=== PATIENT | female | born 1970 | race Caucasian/White ===

== ENCOUNTER → 2017-01-24 | Outpatient (CLI) | payer BC ==
--- NOTE | 2017-01-24 08:52 | US ---
EXAMINATION TYPE: US kidneys/renal and bladder DATE OF EXAM: 01/24/2017 COMPARISON: NONE CLINICAL HISTORY: 46-year-old female with RLQ Pain R10.31. Pt states lower ABD pain. TECHNIQUE: Multiple sonographic images of the kidneys and bladder were obtained. FINDINGS: Right Kidney: 10.4 x 4.5 x 4.7 cm Left Kidney: 10.9 x 5.5 x 5.1 cm No hydronephrosis on either side. Incidentally, there is somewhat echogenic appearance to the liver. Mild circumferential bladder wall thickening could relate to under distention or cystitis. Neither ur eteral jet is seen during the course of the exam. IMPRESSION: 1. No hydronephrosis. 2. Mild circumferential bladder wall thickening could relate to under distention or cystitis. Clinica lly correlate. 3. The liver appears echogenic. Findings suggest fatty infiltration. Correlate with LFTs, lipid profi le, and patient risk factors.
--- NOTE | 2017-01-24 08:58 | US ---
EXAMINATION TYPE: US pelvic complete DATE OF EXAM: 01/24/2017 COMPARISON: NONE CLINICAL HISTORY: 46-year-old female with RLQ Pain R10.31. Pt states lower ABD pain TECHNIQUE: Transvaginal (TV) and Transabdominal (TA). TV supplemented to better evaluate the uteru s Date of LMP: 01/08/2017 FINDINGS: Uterus: Anteverted measuring 9.3 x 4.7 x 6.0 cm. The uterus is heterogeneous and bulky in appearance. There is a large 1.1 cm cervical nabothian cyst. A section scar is also present along the anterior lower uterine segment with suggestion of s ome fluid. There is bulky rounded appearance to the anterior uterine fundus measures 2.2 x 1.9 cm and could repr esent a focal intramural fibroid with submucosal component. Endometrial Stripe: 1.8 cm, thickened. Right Ovary: 2.7 x 1.8 x 2.2 cm. Left Ovary: 3.6 x 1.9 x 2.8 cm with a 2.0 cm dominant follicle or functional cyst. No evident adnexal abnormality or cul-de-sac free fluid. IMPRESSION: 1. scar containing small amount of fluid. The possibility of a scar niche can be c onsidered. 2. Bulky rounded appearance to the anterior uterine fundus measuring 2.2 cm. Findings suggest a focal intramural fibroid with submucosal component. Consider female pelvic MRI if further evaluation is de sired. 3. The endometrium shows mild excessive thickening at 1.8 cm.
== END | disposition home or self-care (01) ==
LOC: RADUSWWP 07:19
PROVIDERS: ATTEND Internal Medicine
DX: R93.8 Abnormal findings on diagnostic imaging of other specified body structures (principal); N32.89 Other specified disorders of bladder; Z98.890 Other specified postprocedural states
CPT/HCPCS: 76770; 76830; 76856

== ENCOUNTER → 2017-10-08 | Outpatient (CLI) | payer BC ==
--- NOTE | 2017-10-10 11:31 | MM ---
Reason for exam: screening (asymptomatic). Last mammogram was performed 1 year and 10 months ago. History: Patient had first child at age 34. Physical Findings: A clinical breast exam by your physician is recommended on an annual basis and results should be correlated with mammographic findings. MG Screening Mammo w CAD Bilateral CC and MLO view(s) were taken. Prior study comparison: December 19, 2015, bilateral MG diagnostic mammo w CAD CARLY. May 12, 2014, left breast MG work up mamm w CAD LT. There are scattered fibroglandular densities. No significant changes when compared with prior studies. ASSESSMENT: Negative, BI-RAD 1 RECOMMENDATION: Routine screening mammogram of both breasts in 1 year.
== END | disposition home or self-care (01) ==
LOC: RADMAMWWP 09:33
PROVIDERS: ATTEND Internal Medicine
DX: Z12.31 Encounter for screening mammogram for malignant neoplasm of breast (principal)
CPT/HCPCS: 77067

== ENCOUNTER → 2018-08-07 | Outpatient (CLI) | payer BC ==
--- NOTE | 2018-08-07 10:14 | MR ---
EXAMINATION TYPE: MR knee RT wo con DATE OF EXAM: 08/07/2018 COMPARISON: Outside x-ray dated 07/31/2018 HISTORY: Right knee pain TECHNIQUE: Multiplanar, multisequence imaging of the pain knee is performed without IV contrast. FINDINGS: MEDIAL MENISCUS: There is globular intrasubstance signal the posterior horn the medial meniscus. Muco id degeneration favored over meniscal tear. LATERAL MENISCUS: Anterior and posterior horns are intact without tear. CRUCIATE LIGAMENTS: The anterior and posterior cruciate ligaments are intact and unremarkable. COLLATERAL LIGAMENTS: The medial collateral ligament and lateral collateral ligament complex are inta ct and unremarkable. EXTENSOR MECHANISM: Visualized quadriceps and patellar tendons are intact. EFFUSION: No significant suprapatellar joint effusion. POPLITEAL CYST: No popliteal/la cyst. TRICOMPARTMENT SPACES: There is a spur along the upper margin of the patella. Multifocal grade III ch ondromalacia involving the patellar cartilage. Femoral and tibial cartilage is intact. No free fragme nts. No erosive changes. Mild narrowing of the medial compartment of the knee. BONE MARROW SIGNAL: Heterogeneous marrow likely in the basis of reconversion. IMPRESSION: 1. Globular intrasubstance signal posterior horn medial meniscus. Mucoid degeneration favored over me niscal tear. 2. Multifocal grade III chondromalacia patellar cartilage. No free fragment or osteochondral defect.
== END | disposition home or self-care (01) ==
LOC: RADMRIMAIN 08:47
PROVIDERS: ATTEND Orthopaedic Surgery
DX: M22.41 Chondromalacia patellae, right knee (principal); M23.8X1 Other internal derangements of right knee; R93.7 Abnormal findings on diagnostic imaging of other parts of musculoskeletal system

== ENCOUNTER 2018-10-19 08:40 | Observation (INO) | payer BC ==
[2018-10-19] MEDS ORDERED: ASPIRIN 81 MG PO STA (08:47)
[2018-10-19] MEDS ORDERED: MORPHINE SULFATE 2 MG/ML SYRINGE IVP STA (08:47)
[2018-10-19] MEDS ORDERED: NITROGLYCERIN OINT 1 INCH/GM PACKET TOPICAL STA (08:47)
--- NOTE | 2018-10-19 09:02 | ED ---
General Adult HPI - General Chief complaint: Chest Pain Stated complaint: chest pain Time Seen by Provider: 10/19/18 08:48 Source: patient, RN notes reviewed, old records reviewed Mode of arrival: ambulatory Limitations: no limitations - History of Present Illness Initial comments: 48-year-old female presenting for evaluation of chest pain. Patient describes one hour history of heartburn and nausea. She developed some pain in the left side of her neck. As well as radiating pain to both arms. She has no known history of coronary artery disease. She did report some pain in her upper neck and back. Pain began abruptly 1 hour prior to arrival. She has history of gastric reflux, states this is different from her normal reflux. She has previous surgical history of cholecystectomy. She has hypercholesterolemia, she is a nondiabetic. No family history of premature coronary artery disease. - Related Data Home Medications Medication Instructions Recorded Confirmed ALPRAZolam [Xanax] 0.25 mg PO DAILY PRN 10/19/18 10/19/18 Aspirin EC [Ecotrin Low Dose] 81 mg PO DAILY PRN 10/19/18 10/19/18 Ergocalciferol (Vitamin D2) 50,000 unit PO WE 10/19/18 10/19/18 [Drisdol] Fluticasone Nasal [place] [Flonase 1 spray EA NOSTRIL DAILY PRN 10/19/18 10/19/18 Nasal [place]] Levothyroxine Sodium [Synthroid] 100 mcg PO DAILY 10/19/18 10/19/18 Omeprazole [PriLOSEC] 20 mg PO DAILY PRN 10/19/18 10/19/18 Sertraline [Zoloft] 50 mg PO DAILY 10/19/18 10/19/18 Allergies Allergy/AdvReac Type Severity Reaction Status Date / Time egg Allergy Nausea & Verified 10/19/18 09:26 Vomiting Milk Containing Products Allergy Nausea & Verified 10/19/18 09:26 [Dairy] Vomiting Review of Systems ROS Statement: Those systems with pertinent positive or pertinent negative responses have been documented in the HPI. ROS Other: All systems not noted in ROS Statement are negative. Past Medical History Past Medical History: Thyroid Disorder History of Any Multi-Drug Resistant Organisms: None Reported Past Surgical History: Unable to Obtain Past Psychological History: No Psychological Hx Reported, Anxiety, Depression Smoking Status: Former smoker Past Alcohol Use History: None Reported Past Drug Use History: None Reported General Exam Limitations: no limitations General appearance: alert, in no apparent distress Head exam: Present: atraumatic, normocephalic Eye exam: Present: normal appearance, PERRL ENT exam: Present: normal exam Neck exam: Present: normal inspection. Absent: tenderness, meningismus Respiratory exam: Present: normal lung sounds bilaterally. Absent: respiratory distress, wheezes Cardiovascular Exam: Present: regular rate, normal rhythm GI/Abdominal exam: Present: soft. Absent: distended, tenderness, guarding Extremities exam: Present: normal inspection, normal capillary refill. Absent: pedal edema, calf tenderness Back exam: Present: normal inspection, full ROM Neurological exam: Present: alert, oriented X3 Psychiatric exam: Present: normal affect, normal mood Skin exam: Present: warm, dry, intact. Absent: cyanosis, diaphoretic Course Vital Signs 10/19/18 10/19/18 10/19/18 08:42 09:30 10:00 Temperature 98.3 F Pulse Rate 67 62 58 L Respiratory 16 18 16 Rate Blood Pressure 160/97 147/94 134/91 O2 Sat by Pulse 99 95 96 Oximetry EKG Findings - EKG Comments: EKG Findings:: Sinus bradycardia no ST segment elevation rate of 56, [place] interval 140 QRS duration 92, QTC 422 Medical Decision Making - Medical Decision Making 48-year-old female presenting for evaluation of indigestion, nausea, chest pain. Patient's symptoms didn't begin abruptly 1 hour prior to arrival. EKG is sinus rhythm with no ST segment elevation. Chest x-ray shows cardiomegaly no other acute findings. She has normal CBC, normal CMP. She d-dimer is negative. Initial troponin negative. Patient's will be kept in observation for serial cardiac enzymes, telemetry, cardiology consultation. Case is discussed with Dr. Hall, will admit patient. - Lab Data Result diagrams: 10/19/18 08:56 10/19/18 08:56 Lab Results 10/19/18 10/19/18 10/19/18 Range/Units 08:56 08:56 08:56 WBC 6.6 (3.8-10.6) k/uL RBC 4.27 (3.80-5.40) m/uL Hgb 13.1 (11.4-16.0) gm/dL Hct 39.5 (34.0-46.0) % MCV 92.6 (80.0-100.0) fL MCH 30.6 (25.0-35.0) pg MCHC 33.1 (31.0-37.0) g/dL RDW 13.6 (11.5-15.5) % Plt Count 257 (150-450) k/uL Neutrophils % 58 % Lymphocytes % 29 % Monocytes % 6 % Eosinophils % 3 % Basophils % 1 % Neutrophils # 3.9 (1.3-7.7) k/uL Lymphocytes # 1.9 (1.0-4.8) k/uL Monocytes # 0.4 (0-1.0) k/uL Eosinophils # 0.2 (0-0.7) k/uL Basophils # 0.1 (0-0.2) k/uL PT (9.0-12.0) sec INR (<1.2) APTT (22.0-30.0) sec D-Dimer (<0.60) mg/L FEU Sodium 138 (137-145) mmol/L Potassium 4.3 (3.5-5.1) mmol/L Chloride 106 (98-107) mmol/L Carbon Dioxide 24 (22-30) mmol/L Anion Gap 8 mmol/L BUN 12 (7-17) mg/dL Creatinine 0.76 (0.52-1.04) mg/dL Est GFR (CKD-EPI)AfAm >90 (>60 ml/min/1.73 sqM) Est GFR (CKD-EPI)NonAf >90 (>60 ml/min/1.73 sqM) Glucose 106 H (74-99) mg/dL Calcium 9.4 (8.4-10.2) mg/dL Magnesium 2.0 (1.6-2.3) mg/dL Total Bilirubin 0.4 (0.2-1.3) mg/dL AST 21 (14-36) U/L ALT 19 (9-52) U/L Alkaline Phosphatase 71 (38-126) U/L Troponin I (0.000-0.034) ng/mL NT-Pro-B Natriuret Pep 28 pg/mL Total Protein 7.3 (6.3-8.2) g/dL Albumin 4.1 (3.5-5.0) g/dL 10/19/18 10/19/18 Range/Units 08:56 08:56 WBC (3.8-10.6) k/uL RBC (3.80-5.40) m/uL Hgb (11.4-16.0) gm/dL Hct (34.0-46.0) % MCV (80.0-100.0) fL MCH (25.0-35.0) pg MCHC (31.0-37.0) g/dL RDW (11.5-15.5) % Plt Count (150-450) k/uL Neutrophils % % Lymphocytes % % Monocytes % % Eosinophils % % Basophils % % Neutrophils # (1.3-7.7) k/uL Lymphocytes # (1.0-4.8) k/uL Monocytes # (0-1.0) k/uL Eosinophils # (0-0.7) k/uL Basophils # (0-0.2) k/uL PT 10.3 (9.0-12.0) sec INR 1.0 (<1.2) APTT 27.4 (22.0-30.0) sec D-Dimer 0.26 (<0.60) mg/L FEU Sodium (137-145) mmol/L Potassium (3.5-5.1) mmol/L Chloride (98-107) mmol/L Carbon Dioxide (22-30) mmol/L Anion Gap mmol/L BUN (7-17) mg/dL Creatinine (0.52-1.04) mg/dL Est GFR (CKD-EPI)AfAm (>60 ml/min/1.73 sqM) Est GFR (CKD-EPI)NonAf (>60 ml/min/1.73 sqM) Glucose (74-99) mg/dL Calcium (8.4-10.2) mg/dL Magnesium (1.6-2.3) mg/dL Total Bilirubin (0.2-1.3) mg/dL AST (14-36) U/L ALT (9-52) U/L Alkaline Phosphatase (38-126) U/L Troponin I <0.012 (0.000-0.034) ng/mL NT-Pro-B Natriuret Pep pg/mL Total Protein (6.3-8.2) g/dL Albumin (3.5-5.0) g/dL Disposition Clinical Impression: Chest pain Disposition: ADMITTED IP TO THIS [facility] Condition: Stable Is patient prescribed a controlled substance at d/c from ED?: No Referrals: Angi Hall MD [Primary Care Provider] - 1-2 days Decision to Admit Reason: Admit from EC Decision Date: 10/19/18 Decision Time: 10:26
[2018-10-19] MEDS ORDERED: MAG HYDROX/AL HYDROX/SIMETH 30 ML, HYOSCYAMINE ELIXIR 10 ML, CIMETIDINE HCL 300 MG, LID... PO STA ×4 (09:05)
[2018-10-19] MEDS ORDERED: MORPHINE SULFATE 4 MG/ML SYRINGE IVP STA (09:05)
[2018-10-19 09:11] LABS: Basophils # (A) 0.1 k/uL (0-0.2); Basophils % (A) 1 %; Eosinophils # (A) 0.2 k/uL (0-0.7); Eosinophils % (A) 3 %; HCT 39.5 % (34.0-46.0); HGB 13.1 gm/dL (11.4-16.0); Lymphocytes # (A) 1.9 k/uL (1.0-4.8); Lymphocytes % (A) 29 %; MCH 30.6 pg (25.0-35.0); MCHC 33.1 g/dL (31.0-37.0); MCV 92.6 fL (80.0-100.0); Mean Platelet Volume 7.6; Monocytes # (A) 0.4 k/uL (0-1.0); Monocytes % (A) 6 %; Neutrophils # (A) 3.9 k/uL (1.3-7.7); Neutrophils % (A) 58 %; Platelet Count 257 k/uL (150-450); RBC 4.27 m/uL (3.80-5.40); RDW 13.6 % (11.5-15.5); WBC 6.6 k/uL (3.8-10.6)
--- NOTE | 2018-10-19 09:13 | XR ---
EXAMINATION TYPE: XR chest 2V DATE OF EXAM: 10/19/2018 HISTORY: Chest Pain. REFERENCE: Previous study dated 11/30/2015. FINDINGS: The heart is mildly prominent. The lungs are clear. Pleural spaces are clear. IMPRESSION: MILD CARDIOMEGALY.
[2018-10-19 09:25] LABS: ALT 19 U/L (9-52); AST 21 U/L (14-36); Albumin 4.1 g/dL (3.5-5.0); Alkaline Phosphatase 71 U/L (38-126); Anion Gap 8 mmol/L; Blood Urea Nitrogen 12 mg/dL (7-17); Calcium 9.4 mg/dL (8.4-10.2); Carbon Dioxide 24 mmol/L (22-30); Chloride 106 mmol/L (98-107); Glucose 106 mg/dL (74-99); Potassium 4.3 mmol/L (3.5-5.1); Sodium 138 mmol/L (137-145); Total Bilirubin 0.4 mg/dL (0.2-1.3); Total Protein 7.3 g/dL (6.3-8.2)
[2018-10-19 09:27] LABS: D-Dimer 0.26 mg/L FEU (<0.60); Partial Thromboplastin Time 27.4 sec (22.0-30.0); Prothrombin Time 10.3 sec (9.0-12.0)
[2018-10-19] MEDS ORDERED: ASPIRIN 325 MG TAB PO STA (10:11)
[2018-10-19] MEDS ORDERED: MORPHINE SULFATE 4 MG/ML SYRINGE IV PRN (10:21)
[2018-10-19] MEDS ORDERED: ONDANSETRON 4 MG/2 ML VIAL IVP PRN (10:21)
[2018-10-19] MEDS ORDERED: ACETAMINOPHEN TAB 325 MG TAB PO PRN (10:21)
[2018-10-19] MEDS ORDERED: NALOXONE 0.4 MG/ML 1 ML VIAL IV PRN ×2 (10:21→15:57)
[2018-10-19 15:54] VITALS: BMI 38.6
[2018-10-19] MEDS ORDERED: CALCIUM CARBONATE 500 MG CHEWABLE PO PRN (15:57)
[2018-10-19] MEDS ORDERED: HYDROcodone/APAP 5-325MG 1 EACH TAB PO PRN (15:57)
[2018-10-19] MEDS ORDERED: CYCLOBENZAPRINE 5 MG TAB PO PRN (15:59)
[2018-10-19] MEDS ORDERED: ASPIRIN 81 MG PO PRN (16:05)
[2018-10-19] MEDS ORDERED: ALPRAZolam 0.25 MG TAB PO PRN (16:05)
[2018-10-19] MEDS ORDERED: FLUTICASONE 50MCG/SPRAY NASAL 16GM EA NOSTRIL PRN (16:05)
[2018-10-19] MEDS ORDERED: PANTOPRAZOLE 40 MG/10 ML VIAL IVP ONE (16:07)
--- NOTE | 2018-10-19 16:10 | P.HPIM ---
History of Present Illness H&P Date: 10/19/18 Chief Complaint: GERD and neck pain Patient is a 48-year-old female who is a patient of Dr. Hall with past medical history of diet-controlled dyslipidemia diagnosed earlier this month, hypothyroidism, GERD, anxiety/depression, and prior cerebral AVM bleed who presented to the emergency department with complaints of neck pain and severe acid reflux. In the ER she underwent an extensive evaluation. On arrival she was slightly hypertensive with a blood pressure 160/97. Initial laboratory analysis was unremarkable. Initial troponin was negative. EKG appeared nonischemic. She was given a GI cocktail which relieved her dyspepsia but did not improve her neck pain. patient seen and examined by. She reports today she was in her bathroom getting ready after a shower and had sudden onset severe acid reflux. It felt like a burning that was retrosternal and through to her back. It was associated with some left sided neck pain. She also felt short of breath. She was having some tingling in bilateral fingers. She reports feeling lightheaded. She also felt nauseous. She did have a slight headache and felt weak. She did not feels that she was given a pass out. She reports she took Prilosec but that didn't help. She has been suffering from increased acid reflux recently and has been on as needed Prilosec. She reports that over the last 2 weeks she has felt some palpitations or irregular heartbeat but she has not yet sought medical attention for this. She does report some increased stress at home but doesn't feel like this episode is related to anxiety. She denies any recent cough, cold, fever, flu, diarrhea, constipation, or dysuria. 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 She reports that her only recent change in medication with the addition of Prilosec earlier this month by Dr. Hall Review of Systems Pertinent positives and negatives as discussed in HPI, a complete review of systems was performed and all other systems are negative. Past Medical History Past Medical History: GERD/Reflux, Thyroid Disorder Additional Past Medical History / Comment(s): hypothyroid. Right temporal AVM with bleed. Dyslipidemia currently on diet modification. 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 [employer] - Past Family History Mother Family Medical History: Hyperlipidemia, Hypertension Grandfather Family Medical History: Myocardial Infarction ([place]) Medications and Allergies Home Medications Medication Instructions Recorded Confirmed Type ALPRAZolam [Xanax] 0.25 mg PO DAILY PRN 10/19/18 10/19/18 History Aspirin EC [Ecotrin Low Dose] 81 mg PO DAILY PRN 10/19/18 10/19/18 History Ergocalciferol (Vitamin D2) 50,000 unit PO WE 10/19/18 10/19/18 History [Drisdol] Fluticasone Nasal [place] [Flonase 1 spray EA NOSTRIL DAILY PRN 10/19/18 10/19/18 History Nasal [place]] Levothyroxine Sodium [Synthroid] 100 mcg PO DAILY 10/19/18 10/19/18 History Omeprazole [PriLOSEC] 20 mg PO DAILY PRN 10/19/18 10/19/18 History Sertraline [Zoloft] 50 mg PO DAILY 10/19/18 10/19/18 History Allergies Allergy/AdvReac Type Severity Reaction Status Date / Time egg Allergy Nausea & Verified 10/19/18 09:26 Vomiting Milk Containing Products Allergy Nausea & Verified 10/19/18 09:26 [Dairy] Vomiting Physical Exam Osteopathic Statement: *. No significant issues noted on an osteopathic structural exam other than those noted in the History and Physical/Consult. Vitals: Vital Signs Temp Pulse Pulse Resp BP BP Pulse Ox 10/19/18 15:12 98.3 F 53 L 16 116/77 100 10/19/18 14:30 61 18 112/76 96 10/19/18 14:00 56 L 109/75 98 10/19/18 13:30 58 L 115/77 96 10/19/18 13:00 55 L 127/90 98 10/19/18 12:30 63 18 111/81 97 10/19/18 11:30 58 L 113/78 97 10/19/18 11:00 52 L 116/86 96 10/19/18 10:30 53 L 131/90 97 10/19/18 10:00 58 L 16 134/91 96 10/19/18 09:30 62 18 147/94 95 10/19/18 08:42 98.3 F 67 16 160/97 99 Intake and Output 10/19/18 10/19/18 10/19/18 06:59 14:59 22:59 Other: Weight 102.058 kg General: non toxic, no distress, appears at stated age, obese Derm: no unusual rashes/lesions no unusual ecchymoses, warm, dry Head: atraumatic, normocephalic, symmetric Eyes: EOMI, no lid lag, anicteric sclera, pupils equal round reactive to light ENT: Nose and ears atraumatic, no thrush, no pharyngeal erythema Neck: No thyromegaly, no cervical lymphadenopathy, trachea midline, supple Mouth: no lip lesion, mucus membranes moist Cardiovascular: S1S2 reg, no murmur, positive posterior tibial pulse bilateral, no edema, capillary refill less than 2 seconds Lungs: CTA bilateral, no rhonchi, no rales , no accessory muscle use Abdominal: soft, nontender to palpation, no guarding, no appreciable organomegaly, normal bowel sounds Ext: no gross muscle atrophy, muscle strength 5 out of 5 in all 4 extremities grossly, no contractures, Neuro: CN II-XI grossly intact, light touch intact all 4 extremities, finger to nose within normal limits, Psych: Alert, oriented, appropriate affect Results CBC & Chem 7: 10/19/18 08:56 10/19/18 08:56 Labs: Abnormal Lab Results - Last 24 Hours (Table) 10/19/18 Range/Units 08:56 Glucose 106 H (74-99) mg/dL Comments: EKG is reviewed by myself revealed sinus bradycardia at a rate of 56 with flattening of T waves, normal axis, normal intervals Chest x-ray: report reviewed Thrombosis Risk Factor Assmnt - DVT/VTE Prophylaxis DVT/VTE Prophylaxis: Low risk, early ambulation encouraged - Choose All That Apply Any of the Below Risk Factors Present?: Yes Each Factor Represents 1 point: Age 41-60 years, Obesity (BMI >25) Other Risk Factors: No Thrombosis Risk Factor Assessment Total Risk Factor Score: 2 Thrombosis Risk Factor Assessment Level: Low Risk Assessment and Plan Assessment: Severe dyspepsia associated with left-sided neck pain -Concern is her possible anginal equivalent -Telemetry, serial cardiac enzymes, nothing by mouth after midnight, cardiology consult -Aspirin daily -Check lipid profile -Trial of muscle relaxer and PPI Palpitations - tele - check TSH HLD - not on medications currently - check lipid profile Elevated BP without disgnosis of HTN - suspect will remain normal without intervention - follow BP Obesity, BMI 38.6 - outpatient structured weight loss. Anxiety - zoloft, xanax Hypothyroidism - TSH - levothyroxine The patient is placed in observation with an anticipated less than 2 per night stay for evaluation of acute coronary syndrome. Surrogate decision-maker: CODE STATUS:Full DVT prophylaxis: early ambulation Discussed with: Patient, nursing Anticipated discharge date: 24-[address]: home A total of 55 minutes was spent on the care of this complex patient more than 50% of the time was spent in counseling and care coordination.
[2018-10-20] MEDS ORDERED: LEVOTHYROXINE 100 MCG TAB PO SCH (06:30)
[2018-10-20] MEDS ORDERED: PANTOPRAZOLE 40 MG TABLET PO SCH (07:30)
[2018-10-20] MEDS ORDERED: PANTOPRAZOLE 40 MG/10 ML VIAL IV SCH (09:00)
[2018-10-20] MEDS ORDERED: SERTRALINE 50 MG TAB PO SCH (09:00)
--- NOTE | 2018-10-20 10:26 | P.CRDCN ---
History of Present Illness History of present illness: This is a pleasant 48-year-old female past medical history significant for gastroesophageal reflux disease, hypothyroidism, dyslipidemia and right temporal AV malformation status post bleed. She denies history of coronary artery disease, hypertension or diabetes mellitus. 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 We've been asked to see her in consultation for symptoms of chest discomfort. She states she woke up yesterday am with an achy neck at the base. This was described as an achy muscle. Then about 30 minutes after waking up she started having a burning sensation in the mid-sternal region that radiated through to the back and was associated with nausea. She has had reflux in the past and takes prilosec for that. She took a prilosec and achieved no relieve of the burning pain. After an hour or so of persistent pain she came to ED for evaluation. She was given a protonix which relieved her burning discomfort. She has had no further symptoms since that time. She is seen and examined resting comfortably in bed in no acute distress. She denies any associated shortness of breath, dizziness, vomiting or palpitations. EKG reveals sinus bradycardia heart rate of 56 with nonspecific flattened T waves in the precordial leads. Chest x-ray is negative for an acute cardiopulmonary process. Laboratory data reviewed, WBC 6.6, hemoglobin 13.1, platelets 257, d-dimer 0.26, sodium 138, potassium 4.3, creatinine 0.76, magnesium 2.0, cardiac enzymes negative 3, NT proBNP 28, LDL 122, HDL 38 and TSH 1.76. She currently takes no cardiac medications. At the time of my exam: CONSTITUTIONAL: Denies fever. Denies chills. EYES: Denies blurred vision. Denies vision changes. Denies eye pain. EARS, NOSE, MOUTH & THROAT: Denies headache. Denies sore throat. Denies ear pain. CARDIOVASCULAR: Denies chest pain. Denies shortness of breath. Denies orthopnea. Denies PND. Denies palpitations. RESPIRATORY: Denies cough. GASTROINTESTINAL: Denies abdominal pain. Denies diarrhea. Denies constipation. Denies nausea. Denies vomiting. MUSCULOSKELETAL: Denies myalgias. INTEGUMENTARY: Denies pruitis. Denies rash. NEUROLOGIC: Denies numbness. Denies tingling. Denies weakness. PSYCHIATRIC: Denies anxiety. Denies depression. ENDOCRINE: Denies fatigue. Denies weight change. Denies polydipsia. Denies polyurina. GENITOURINARY: Denies burning, hematuria or urgency with micturation. HEMATOLOGIC: Denies history of anemia. Denies bleeding. Blood pressure 110/73 heart rate 72 afebrile maintaining oxygen saturation on room air GENERAL: This is a 48-year-old female in no apparent distress at the time of my examination. HEENT: Head is atraumatic, normocephalic. Pupils are equal, round. Sclerae anicteric. Conjunctivae are clear. Mucous membranes of the mouth are moist. Neck is supple. There is no jugular venous distention. No carotid bruit is heard. LUNGS: Clear to auscultation no wheezes, rales or rhonchi. No chest wall tenderness is noted on palpation or with deep breathing. HEART: Regular rate and rhythm without murmurs, rubs or gallops. S1 and S2 heard. ABDOMEN: Soft, nontender. Bowel sounds are heard. No organomegaly noted. EXTREMITIES: No evidence of peripheral edema and no calf tenderness noted. VASCULAR: Radial and dorsalis pedis pulses palpated, no evidence of clubbing. NEUROLOGIC: Patient is awake, alert and oriented x3. ASSESSMENT Chest discomfort, atypical for angina. An acute coronary event has been ruled out. Gastroesophageal reflux disease Dyslipidemia Hypothyroidism PLAN An acute coronary event has been ruled out. Symptoms resolved potonix and are more suggestive of gastroesophageal reflux disease however with baseline EKG abnormalities we will proceed with a stress test. Echocardiogram has been ordered per the emergency department and will be reviewed. Lifestyle modifications in the form of diet and exercise recommended for lowering of LDL cholesterol. If stress test is normal she is stable from a cardiac perspective. Thank you kindly for this consultation. Nurse Practitioner note has been reviewed, I agree with a documented findings and plan of care. Patient was seen and examined. Past Medical History Past Medical History: GERD/Reflux, Thyroid Disorder Additional Past Medical History / Comment(s): hypothyroid. Right temporal AVM with bleed. Dyslipidemia currently on diet modification. History of Any Multi-Drug Resistant Organisms: None Reported Past Surgical History: Section, Cholecystectomy, Tubal Ligation Additional Past Surgical History / Comment(s): x2, brain bleed from AVM with surgery/craniotomy, Past Anesthesia/Blood Transfusion Reactions: Postoperative Nausea & Vomiting (PONV) Past Psychological History: Anxiety, Depression Smoking Status: Former smoker Past Alcohol Use History: None Reported Past Drug Use History: None Reported - Past Family History Mother Family Medical History: Hyperlipidemia, Hypertension Grandfather Family Medical History: Myocardial Infarction ([place]) Medications and Allergies Home Medications Medication Instructions Recorded Confirmed Type ALPRAZolam [Xanax] 0.25 mg PO DAILY PRN 10/19/18 10/19/18 History Aspirin EC [Ecotrin Low Dose] 81 mg PO DAILY PRN 10/19/18 10/19/18 History Ergocalciferol (Vitamin D2) 50,000 unit PO WE 10/19/18 10/19/18 History [Drisdol] Fluticasone Nasal [place] [Flonase 1 spray EA NOSTRIL DAILY PRN 10/19/18 10/19/18 History Nasal Stopover] Levothyroxine Sodium [Synthroid] 100 mcg PO DAILY 10/19/18 10/19/18 History Omeprazole [PriLOSEC] 20 mg PO DAILY PRN 10/19/18 10/19/18 History Sertraline [Zoloft] 50 mg PO DAILY 10/19/18 10/19/18 History Allergies Allergy/AdvReac Type Severity Reaction Status Date / Time egg Allergy Nausea & Verified 10/19/18 09:26 Vomiting Milk Containing Products Allergy Nausea & Verified 10/19/18 09:26 [Dairy] Vomiting Physical Exam Vitals: Vital Signs Temp Pulse Pulse Resp BP BP BP 10/20/18 06:51 97.7 F 72 17 110/73 10/20/18 04:00 98.0 F 63 14 103/69 10/20/18 03:48 15 10/20/18 00:00 15 10/19/18 23:00 98.6 F 66 15 94/62 10/19/18 20:00 76 15 10/19/18 19:04 98.4 F 76 15 119/67 10/19/18 15:58 53 L 16 10/19/18 15:12 98.3 F 53 L 16 116/77 10/19/18 14:30 61 18 112/76 10/19/18 14:00 56 L 109/75 10/19/18 13:30 58 L 115/77 10/19/18 13:00 55 L 127/90 10/19/18 12:30 63 18 111/81 10/19/18 11:30 58 L 113/78 10/19/18 11:00 52 L 116/86 10/19/18 10:30 53 L 131/90 10/19/18 10:00 58 L 16 134/91 10/19/18 09:30 62 18 147/94 10/19/18 08:42 98.3 F 67 16 160/97 Pulse Ox 10/20/18 06:51 96 10/20/18 04:00 98 10/20/18 03:48 10/20/18 00:00 10/19/18 23:00 97 10/19/18 20:00 10/19/18 19:04 98 10/19/18 15:58 10/19/18 15:12 100 10/19/18 14:30 96 10/19/18 14:00 98 10/19/18 13:30 96 10/19/18 13:00 98 10/19/18 12:30 97 10/19/18 11:30 97 10/19/18 11:00 96 10/19/18 10:30 97 10/19/18 10:00 96 10/19/18 09:30 95 10/19/18 08:42 99 Intake and Output 10/19/18 10/20/18 10/20/18 22:59 06:59 14:59 Intake Total 0 Balance 0 Intake: Oral 0 Other: Voiding Method Toilet Toilet # Voids 1 Results 10/19/18 08:56 10/19/18 08:56 Cardiac Enzymes 10/19/18 10/19/18 10/19/18 Range/Units 08:56 08:56 15:00 AST 21 (14-36) U/L Troponin I <0.012 <0.012 (0.000-0.034) ng/mL 10/19/18 Range/Units 21:07 AST (14-36) U/L Troponin I <0.012 (0.000-0.034) ng/mL Coagulation 10/19/18 Range/Units 08:56 PT 10.3 (9.0-12.0) sec APTT 27.4 (22.0-30.0) sec Lipids 10/19/18 Range/Units 08:56 Triglycerides 153 H (<150) mg/dL Cholesterol 191 (<200) mg/dL HDL Cholesterol 38 L (40-60) mg/dL CBC 10/19/18 Range/Units 08:56 WBC 6.6 (3.8-10.6) k/uL RBC 4.27 (3.80-5.40) m/uL Hgb 13.1 (11.4-16.0) gm/dL Hct 39.5 (34.0-46.0) % Plt Count 257 (150-450) k/uL Comprehensive Metabolic Panel 10/19/18 Range/Units 08:56 Sodium 138 (137-145) mmol/L Potassium 4.3 (3.5-5.1) mmol/L Chloride 106 (98-107) mmol/L Carbon Dioxide 24 (22-30) mmol/L BUN 12 (7-17) mg/dL Creatinine 0.76 (0.52-1.04) mg/dL Glucose 106 H (74-99) mg/dL Calcium 9.4 (8.4-10.2) mg/dL AST 21 (14-36) U/L ALT 19 (9-52) U/L Alkaline Phosphatase 71 (38-126) U/L Total Protein 7.3 (6.3-8.2) g/dL Albumin 4.1 (3.5-5.0) g/dL Current Medications Generic Name Dose Route Start Last Admin Trade Name Freq PRN Reason Stop Dose Admin Acetaminophen 650 mg 10/19/18 10:21 10/19/18 22:09 Tylenol Tab PO 650 mg Q6HR PRN Administration Mild Pain or Fever > 100.5 Hydrocodone Bitart/Acetaminophen 1 each 10/19/18 15:57 [place] 5-325 PO Q4HR PRN Moderate Pain Alprazolam 0.25 mg 10/19/18 16:05 Xanax PO DAILY PRN Anxiety Aspirin 81 mg 10/19/18 16:05 Aspirin PO DAILY PRN Pain Calcium Carbonate/Glycine 1,000 mg 10/19/18 15:57 Tums PO Q4HR PRN Dyspepsia Cyclobenzaprine HCl 5 mg 10/19/18 15:59 10/19/18 17:16 Flexeril PO 5 mg TID PRN Administration Muscle Spasm Ergocalciferol 50,000 unit 10/22/18 09:00 Vitamin D2 PO WE [place] Fluticasone Propionate 1 spray 10/19/18 16:05 Flonase Nasal [place] EA NOSTRIL DAILY PRN Allergy Symptoms Levothyroxine Sodium 100 mcg 10/20/18 06:30 10/20/18 06:04 Synthroid PO 100 mcg DAILY@0630 PEYMAN Administration Morphine Sulfate 4 mg 10/19/18 10:21 Morphine Sulfate (Inj) IV Q4HR PRN Severe Pain Naloxone HCl 0.2 mg 10/19/18 15:57 Narcan IV Q2M PRN Opioid Reversal Ondansetron HCl 4 mg 10/19/18 10:21 Zofran IVP Q8HR PRN Nausea And Vomiting Pantoprazole Sodium 40 mg 10/20/18 07:30 Protonix PO AC-BID PEYMAN Sertraline HCl 50 mg 10/20/18 09:00 Zoloft PO DAILY [place]MAN Intake and Output 10/19/18 10/20/18 10/20/18 22:59 06:59 14:59 Intake Total 0 Balance 0 Intake: Oral 0 Other: Voiding Method Toilet Toilet # Voids 1 10/19/18 08:56 10/19/18 08:56
[2018-10-20 12:26] VITALS: BP 109/76; PULSE 89; RESP 16; TEMP 98.6
--- NOTE | 2018-10-20 12:37 | ECHOF ---
Referral Reason: MEASUREMENTS -------- HEIGHT: 162.6 cm WEIGHT: 102.1 kg BP: 110/73 RVIDd: 2.7 cm (< 3.3) IVSd: 1.1 cm (0.6 - 1.1) LVIDd: 3.9 cm (3.9 - 5.3) LVPWd: 1.5 cm (0.6 - 1.1) IVSs: 1.5 cm LVIDs: 2.6 cm LVPWs: 1.9 cm Ao Diam: 2.8 cm (2.0 - 3.7) AV Cusp: 2.1 cm (1.5 - 2.6) LA Diam: 3.2 cm (2.7 - 3.8) MV EXCURSION: 21.171 mm (> 18.000) MV EF SLOPE: 96 mm/s (70 - 150) EPSS: 0.8 cm MV E Larry: 0.54 m/s MV DecT: 225 ms MV A Larry: 0.53 m/s MV E/A Ratio: 1.02 RAP: 5.00 mmHg RVSP: 11.68 mmHg FINDINGS -------- Sinus rhythm. This was a technically good study. The left ventricular size is normal. There is mild concentric left ventricular hypertrophy. Overa ll left ventricular systolic function is normal with, an EF between 55 - 60 %. The right ventricle is normal in size. The left atrial size is normal. The right atrial size is normal. Interatrial and interventricular septum intact. The aortic valve is trileaflet and appears structurally normal. The mitral valve leaflets are mildly thickened. There is trace mitral regurgitation. Trace tricuspid regurgitation present. The right ventricular systolic pressure, as measured by Dopp ler, is 11.68mmHg. Pulmonic valve appears structurally normal. The aortic root size is normal. Normal inferior vena cava with normal inspiratory collapse consistent with estimated right atrial pre ssure of 5 mmHg. There is no pericardial effusion. CONCLUSIONS -------- 1. Sinus rhythm. 2. This was a technically good study. 3. The left ventricular size is normal. 4. There is mild concentric left ventricular hypertrophy. 5. Overall left ventricular systolic function is normal with, an EF between 55 - 60 %. 6. The right ventricle is normal in size. 7. The left atrial size is normal. 8. The right atrial size is normal. 9. Interatrial and interventricular septum intact. 10. The aortic valve is trileaflet and appears structurally normal. 11. The mitral valve leaflets are mildly thickened. 12. There is trace mitral regurgitation. 13. Trace tricuspid regurgitation present. 14. The right ventricular systolic pressure, as measured by Doppler, is 11.68mmHg. 15. Pulmonic valve appears structurally normal. 16. The aortic root size is normal. 17. Normal inferior vena cava with normal inspiratory collapse consistent with estimated right atrial pressure of 5 mmHg. 18. There is no pericardial effusion. FIRE RANGE TECHNICIAN: Jaelyn Lindsey RDCS
--- NOTE | 2018-10-20 13:07 | ECHOS ---
STRESS ECHOCARDIOGRAM DATE OF SERVICE: 10/20/2018 INDICATIONS: Chest pain. MEDICATIONS: BASELINE HEART RATE: 76 BASELINE BLOOD PRESSURE: 123/74 MAXIMUM HEART RATE: 157 MAXIMUM BLOOD PRESSURE: 150/72 85% MPHR: 145 100% MPHR: 171 METS: 9.7 MAXIMUM STAGE REACHED: III TOTAL EXERCISE TIME: 8 minutes CLINICAL INFORMATION: Patient was exercised for a total period of 8 minutes. The peak heart rate of 157 was achieved. Maximum blood pressure 150/72 mmHg was noted. Resting EKG shows normal sinus rhythm with normal ND interval and QRS duration and normal ST-T waves. No ST-segment depression suggestive of ischemia is noted. The baseline echocardiographic images reveal normal left ventricular chamber size with normal left ventricular systolic function. In the immediate post exercise, normal increase in the wall thickness and contractility is noted. FINAL IMPRESSION: This stress echocardiographic study is negative for stress-induced ischemia. EKG portion of the stress is not suggestive of ischemia. Patient's exercise tolerance is normal. MMODL / IJN: [id number] /
--- NOTE | 2018-10-20 15:00 | P.DS ---
Providers Date of admission: 10/19/18 10:21 Expected date of discharge: 10/20/18 Attending physician: Angi Hall Consults: 10/19/18 10:22 Consult Physician Routine Consulting Provider: Davie Bowser Consult Reason/Comments: CP Do you want consulting provider notified?: Yes Primary care physician: Angi Hall [facility] Course: Discharge diagnosis 1. Chest pain: OK ruled out. No evidence of acute coronary syndrome. Symptoms likely related to patient's acid reflux. Patient was seen and evaluated by cardiology service and underwent stress echo which was negative. EKG sinus bradycardia with heart rate of 56 chest x-ray mild cardiomegaly troponins were negative 3 sets d-dimer normal at 0.26. Patient symptoms have improved she has been cleared by cardiology services 2. Severe dyspepsia with left-sided neck pain. OK ruled out. Patient's symptoms have improved with the Protonix. Likely patient has underlying GERD contributing to her chest pain like symptoms. It appears the patient takes the omeprazole as needed home. 3. Left-sided neck pain resolved. Patient was given 1 dose of muscle relaxer and has not required it since. 4. Palpitations resolved. No arrhythmias noted on telemetry. TSH normal. Patient cleared by cardiology 5. Hypertension on admission resolved 6. Obesity 7. Generalized anxiety disorder 8. Hypothyroidism Hospital course Patient is a 48-year-old female who is a patient of Dr. Hall with past medical history of diet-controlled dyslipidemia diagnosed earlier this month, hypothyroidism, GERD, anxiety/depression, and prior cerebral AVM bleed who presented to the emergency department with complaints of neck pain and severe acid reflux. In the ER she underwent an extensive evaluation. On arrival she was slightly hypertensive with a blood pressure 160/97. Initial laboratory analysis was unremarkable. Initial troponin was negative. EKG appeared nonischemic. She was given a GI cocktail which relieved her dyspepsia but did not improve her neck pain. patient seen and examined by. She reports today she was in her bathroom getting ready after a shower and had sudden onset severe acid reflux. It felt like a burning that was retrosternal and through to her back. It was associated with some left sided neck pain. She also felt short of breath. She was having some tingling in bilateral fingers. She reports feeling lightheaded. She also felt nauseous. She did have a slight headache and felt weak. She did not feels that she was given a pass out. She reports she took Prilosec but that didn't help. She has been suffering from increased acid reflux recently and has been on as needed Prilosec. She reports that over the last 2 weeks she has felt some palpitations or irregular heartbeat but she has not yet sought medical attention for this. She does report some increased stress at home but doesn't feel like this episode is related to anxiety. She denies any recent cough, cold, fever, flu, diarrhea, constipation, or dysuria. 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 She reports that her only recent change in medication with the addition of Prilosec earlier this month by Dr. Hall 10/20/2018 patient is medically stable for discharge. She has been cleared by cardiology service for discharge. Her stress echo was negative. As stated above acute coronary syndrome was ruled out. Symptoms are likely related to acid reflux. I did improve with her Protonix and Tums. At this time we'll discontinue omeprazole and discharge patient on Protonix 40 mg daily. We'll follow up with Dr. Hall in 3 days. Recommend acid reflux precautions. Recommend staying upright for at least 30 minutes after eating. I performed an examination of the patient and discussed their management with the physician Director Of Strategic Initiatives. I have reviewed the Physician Director Of Strategic Initiatives's notes and agree with the documented findings and plan of care Patient Condition at Discharge: Stable Plan - Discharge Summary New Discharge Prescriptions: New Pantoprazole [Protonix] 40 mg PO DAILY #30 tablet. Continue Fluticasone Nasal [place] [Flonase Nasal [place]] 1 spray EA NOSTRIL DAILY PRN PRN Reason: Allergy Symptoms ALPRAZolam [Xanax] 0.25 mg PO DAILY PRN PRN Reason: Anxiety Levothyroxine Sodium [Synthroid] 100 mcg PO DAILY Ergocalciferol (Vitamin D2) [Drisdol] 50,000 unit PO WE Aspirin EC [Ecotrin Low Dose] 81 mg PO DAILY PRN PRN Reason: Pain Sertraline [Zoloft] 50 mg PO DAILY Discontinued Omeprazole [PriLOSEC] 20 mg PO DAILY PRN PRN Reason: STOMACH Discharge Medication List ALPRAZolam [Xanax] 0.25 mg PO DAILY PRN 10/19/18 [History] Aspirin EC [Ecotrin Low Dose] 81 mg PO DAILY PRN 10/19/18 [History] Ergocalciferol (Vitamin D2) [Drisdol] 50,000 unit PO WE 10/19/18 [History] Fluticasone Nasal [place] [Flonase Nasal [place]] 1 spray EA NOSTRIL DAILY PRN 10/19/18 [History] Levothyroxine Sodium [Synthroid] 100 mcg PO DAILY 10/19/18 [History] Sertraline [Zoloft] 50 mg PO DAILY 10/19/18 [History] Pantoprazole [Protonix] 40 mg PO DAILY #30 tablet. 10/20/18 [Rx] Follow up Appointment(s)/Referral(s): Angi Hall MD [Primary Care Provider] - 3 Days Activity/Diet/Wound Care/Special Instructions: Diet: Heart healthy, avoid foods high in acid. Avoid caffeinated beverages. Keep head elevated 30 minutes after eating Activity as tolerated Discharge Disposition: HOME SELF-CARE
[2018-10-22] MEDS ORDERED: ERGOCALCIFEROL 50,000 UNIT CAP PO SCH (09:00)
== END 2018-10-20 16:02 | disposition home or self-care (01) ==
LOC: EC 08:40 → 1SOBS 10:21
PROVIDERS: ADMIT Internal Medicine; ATTEND Internal Medicine
DX: R07.89 Other chest pain (principal); K30 Functional dyspepsia; K21.9 Gastro-esophageal reflux disease without esophagitis; I51.7 Cardiomegaly; E78.00 Pure hypercholesterolemia, unspecified; E78.5 Hyperlipidemia, unspecified; E03.9 Hypothyroidism, unspecified; M54.2 Cervicalgia; Q28.2 Arteriovenous malformation of cerebral vessels; R42 Dizziness and giddiness; R20.2 Paresthesia of skin; R53.1 Weakness; R00.2 Palpitations; R00.1 Bradycardia, unspecified; R03.0 Elevated blood-pressure reading, without diagnosis of hypertension; F32.9 Major depressive disorder, single episode, unspecified; F41.1 Generalized anxiety disorder; E66.9 Obesity, unspecified; Z68.38 Body mass index [BMI] 38.0-38.9, adult; Z79.82 Long term (current) use of aspirin; Z79.890 Hormone replacement therapy; Z79.899 Other long term (current) drug therapy; Z91.012 Allergy to eggs; Z91.011 Allergy to milk products; Z87.19 Personal history of other diseases of the digestive system; Z87.891 Personal history of nicotine dependence; Z90.49 Acquired absence of other specified parts of digestive tract; Z98.51 Tubal ligation status; Z82.49 Family history of ischemic heart disease and other diseases of the circulatory system; Z83.49 Family history of other endocrine, nutritional and metabolic diseases
CPT/HCPCS: 96375; 96374; 99285; 36415; 93005; 93306; 93351; 85379; 83880; 80061; 80053; 84443; 83735; 84484; 85025; 85610; 85730; 71046; G0378 ×2; J2270; C9113

== ENCOUNTER → 2019-04-23 | Outpatient (CLI) | payer BC ==
--- NOTE | 2019-04-24 10:54 | MM ---
Reason for exam: screening (asymptomatic). Last mammogram was performed 1 year and 6 months ago. History: Patient had first child at age 34. Physical Findings: A clinical breast exam by your physician is recommended on an annual basis and results should be correlated with mammographic findings. MG Screening Mammo w CAD Bilateral CC and MLO view(s) were taken. Prior study comparison: October 08, 2017, bilateral MG screening mammo w CAD. December 19, 2015, bilateral MG diagnostic mammo w CAD CARLY. The breast tissue is heterogeneously dense. This may lower the sensitivity of mammography. There is no discrete abnormality. No significant changes when compared with prior studies. ASSESSMENT: Negative, BI-RAD 1 RECOMMENDATION: Routine screening mammogram of both breasts in 1 year.
== END | disposition home or self-care (01) ==
LOC: RADMAMWWP 08:27
PROVIDERS: ATTEND Internal Medicine
DX: Z12.31 Encounter for screening mammogram for malignant neoplasm of breast (principal)
CPT/HCPCS: 77067

== ENCOUNTER → 2020-04-28 | Outpatient (CLI) | payer BC | END | disposition home or self-care (01) | LOC: LABWHC1 10:27 | PROVIDERS: ATTEND Family Medicine | DX: Z20.828 Contact with and (suspected) exposure to other viral communicable diseases (principal) | CPT/HCPCS: U0003; C9803 ==

== ENCOUNTER → 2020-05-25 | Outpatient (CLI) | payer BC ==
--- NOTE | 2020-05-26 08:09 | MM ---
Reason for exam: screening (asymptomatic). Last mammogram was performed 1 year and 1 month ago. History: Patient had first child at age 34. Physical Findings: A clinical breast exam by your physician is recommended on an annual basis and results should be correlated with mammographic findings. MG Screening Mammo w CAD Bilateral CC and MLO view(s) were taken. Prior study comparison: April 23, 2019, bilateral MG screening mammo w CAD. October 08, 2017, bilateral MG screening mammo w CAD. The breast tissue is heterogeneously dense. This may lower the sensitivity of mammography. There are benign appearing round calcifications bilaterally. There is no discrete abnormality. ASSESSMENT: Benign, BI-RAD 2 RECOMMENDATION: Routine screening mammogram of both breasts in 1 year.
== END | disposition home or self-care (01) ==
LOC: RADMAMWWP 10:55
PROVIDERS: ATTEND Obstetrics & Gynecology
DX: Z12.31 Encounter for screening mammogram for malignant neoplasm of breast (principal)
CPT/HCPCS: 77067

== ENCOUNTER 2020-10-31 19:27 | Emergency (ER) | payer BC ==
[2020-10-31 19:40] VITALS: RESP 18; TEMP 97.6
[2020-10-31] MEDS ORDERED: ASPIRIN 81 MG PO STA (20:03)
--- NOTE | 2020-10-31 20:22 | ED ---
Chest Pain HPI - General Chief Complaint: Chest Pain Stated Complaint: chest Pain Time Seen by Provider: 10/31/20 19:43 Source: patient Mode of arrival: wheelchair Limitations: no limitations - History of Present Illness Initial Comments: Patient is a 50-year-old female with history of thyroid disorder, presenting to emergency Department with complaints of intermittent chest pains that started about 2 hours prior to arrival. Patient states she was driving home from work when she was getting intermittent sharp pains through her left chest. She stat es it did not last more than a few seconds. She states when she got home she took a couple baby aspirins, she also took a Gas-X and omeprazole to see if it would help over she's continued to have the sharp pain so she came into the ER for evaluation. She states currently she is pain-free, no shortness of breath. She denies any recent fevers or chills. She states before she was driving home from work she felt her normal self, is been eating and drinking as normal today. She denies any heart disease, she had a stress test and for workup 2 years ago, no acute findings. She denies any nausea or vomiting or diarrhea. She has no further complaints at this time. Upon arrival to the ER her vital signs are stable. - Related Data Home Medications Medication Instructions Recorded Confirmed ALPRAZolam [Xanax] 0.25 mg PO DAILY PRN 10/19/18 10/19/18 Aspirin EC [Ecotrin Low Dose] 81 mg PO DAILY PRN 10/19/18 10/19/18 Ergocalciferol (Vitamin D2) 50,000 unit PO WE 10/19/18 10/19/18 [Drisdol (50,000 Iu)] Fluticasone Nasal [place] [Flonase 1 spray EA NOSTRIL DAILY PRN 10/19/18 10/19/18 Nasal [place]] Levothyroxine Sodium [Synthroid] 100 mcg PO DAILY 10/19/18 10/19/18 Sertraline [Zoloft] 50 mg PO DAILY 10/19/18 10/19/18 Previous Rx's Medication Instructions Recorded Pantoprazole [Protonix] 40 mg PO DAILY #30 tablet. 10/20/18 Allergies Allergy/AdvReac Type Severity Reaction Status Date / Time egg Allergy Nausea & Verified 10/31/20 19:37 Vomiting Milk Containing Products Allergy Nausea & Verified 10/31/20 19:37 [Dairy] Vomiting Review of Systems ROS Statement: Those systems with pertinent positive or pertinent negative responses have been documented in the HPI. ROS Other: All systems not noted in ROS Statement are negative. EKG Findings - EKG Comments: EKG Findings:: Normal sinus rhythm, low voltage QRS, nonspecific T-wave abnormalities, prolonged QT, this is similar to previous EKG on 10/20/2018. Ventricular rate 70, KS interval 148, QTc 442. No signs of an acute ischemic process. Past Medical History Past Medical History: GERD/Reflux, Thyroid Disorder Additional Past Medical History / Comment(s): hypothyroid. Right temporal AVM with bleed. Dyslipidemia currently on diet modification. History of Any Multi-Drug Resistant Organisms: None Reported Past Surgical History: Section, Cholecystectomy, Tubal Ligation Additional Past Surgical History / Comment(s): x2, brain bleed from AVM with surgery/craniotomy, Past Anesthesia/Blood Transfusion Reactions: Postoperative Nausea & Vomiting (PONV) Past Psychological History: Anxiety, Depression Smoking Status: Never smoker Past Alcohol Use History: Rare Past Drug Use History: None Reported - Past Family History Mother Family Medical History: Hyperlipidemia, Hypertension Grandfather Family Medical History: Myocardial Infarction ([place]) General Exam - General Exam Comments Initial Comments: GENERAL: Patient is well-developed and well-nourished. Patient is nontoxic and in no acute distress. HEAD: Atraumatic, normocephalic. EYES: Pupils equal round and reactive to light, extraocular movements intact, sclera anicteric, conjunctiva are normal. Eyelids were unremarkable. ENT: TMs normal, nares patent, oropharynx clear without exudates. Moist mucous membranes. NECK: Normal range of motion, supple without lymphadenopathy or JVD. LUNGS: Unlabored respirations. Breath sounds clear to auscultation bilaterally and equal. No wheezes rales or rhonchi. HEART: Regular rate and rhythm without murmurs, rubs or gallops. ABDOMEN: Soft, nontender, normoactive bowel sounds. No guarding, no rebound. No masses appreciated. : Deferred MUSCULOSKELETAL: Normal extremities with adequate strength and normal range of motion, no pitting or edema. No clubbing or cyanosis. NEUROLOGICAL: Patient is alert and oriented x 3. Motor and sensory are also intact. Cranial nerves II through XII grossly intact. Symmetrical smile. Normal speech, normal gait. PSYCH: Normal mood, normal affect. SKIN: Warm, Dry, normal turgor, no rashes or lesions noted. Limitations: no limitations Course Vital Signs 10/31/20 10/31/20 19:37 20:21 Temperature 97.6 F Pulse Rate 62 73 Respiratory 18 18 Rate Blood Pressure 128/84 133/86 O2 Sat by Pulse 98 98 Oximetry Chest Pain MDM - [facility] Patient is a 50-year-old female history of thyroid disease, presenting for intermittent chest pain that started about 2 hours prior to arrival. Her vital signs are stable, no fevers. Her EKG shows no signs of acute ischemia. She had full cardiac workup 2 years ago, no acute findings. Labs today are unremarkable including a normal troponin. Chest x-ray shows no acute abnormality. I discussed with the patient these findings. He did recommend admission [id number] troponins and cardiac consult for patient has refused. I did discuss with her the complications that can arise from a cardiac event including , patient still wishes to go home. Patient will sign out AMA. I did urge her to return to the ER if her chest pain worsens, nausea. Patient is in agreement with this plan of care. She is follow-up with her PCP as well. Case discussed with Dr. Echavarria. Disposition Clinical Impression: Chest pain Disposition: Left Against Medical Advice Condition: Stable Instructions (If sedation given, give patient instructions): Chest Pain (ED) Additional Instructions: Please return to the Emergency Department if symptoms worsen or any other concerns, such as increasing chest pain, nausea, heartburn. Please follow-up with your primary care physician. Is patient prescribed a controlled substance at d/c from ED?: No Referrals: Angi Hall MD [Primary Care Provider] - 1-2 days Time of Disposition: 21:20
[2020-10-31 20:31] LABS: Basophils # (A) 0.1 k/uL (0-0.2); Basophils % (A) 1 %; Eosinophils # (A) 0.3 k/uL (0-0.7); Eosinophils % (A) 3 %; HGB 13.3 gm/dL (11.4-16.0); Lymphocytes # (A) 2.3 k/uL (1.0-4.8); Lymphocytes % (A) 30 %; MCHC 34.1 g/dL (31.0-37.0); Monocytes # (A) 0.5 k/uL (0-1.0); Monocytes % (A) 6 %; Neutrophils # (A) 4.4 k/uL (1.3-7.7); Neutrophils % (A) 58 %; Platelet Count 254 k/uL (150-450); RBC 4.28 m/uL (3.80-5.40); RDW 12.5 % (11.5-15.5); WBC 7.6 k/uL (3.8-10.6)
[2020-10-31 20:43] LABS: ALT 15 U/L (4-34); AST 24 U/L (14-36); African American GFR (CKD) >90 (>60 ml/min/1.73 sqM); Albumin 4.3 g/dL (3.5-5.0); Alkaline Phosphatase 93 U/L (38-126); Anion Gap 10 mmol/L; Blood Urea Nitrogen 16 mg/dL (7-17); Carbon Dioxide 23 mmol/L (22-30); Chloride 104 mmol/L (98-107); Glucose 110 mg/dL (74-99); INR 1.1 (<1.2); Non-African American GFR(CKD) >90 (>60 ml/min/1.73 sqM); Partial Thromboplastin Time 29.5 sec (22.0-30.0); Potassium 4.1 mmol/L (3.5-5.1); Prothrombin Time 11.7 sec (9.0-12.0); Sodium 137 mmol/L (137-145); Total Bilirubin 0.3 mg/dL (0.2-1.3); Total Protein 7.2 g/dL (6.3-8.2)
--- NOTE | 2020-10-31 20:55 | XR ---
EXAMINATION TYPE: XR chest 2V DATE OF EXAM: 10/31/2020 COMPARISON: 10/19/2018 HISTORY: Chest pain TECHNIQUE: 2 views FINDINGS: Heart and mediastinum are normal. Lungs are clear. Diaphragm is normal. Bony thorax is inta ct IMPRESSION: Normal chest. No change
[2020-10-31 21:34] VITALS: BP 125/87; PULSE 71
== END 2020-10-31 21:34 | disposition left against medical advice (07) ==
LOC: EC 19:27
DX: R07.9 Chest pain, unspecified (principal); Z53.29 Procedure and treatment not carried out because of patient's decision for other reasons; K21.9 Gastro-esophageal reflux disease without esophagitis; E03.9 Hypothyroidism, unspecified; E78.5 Hyperlipidemia, unspecified; F32.9 Major depressive disorder, single episode, unspecified; F41.9 Anxiety disorder, unspecified; Z79.82 Long term (current) use of aspirin; Z82.49 Family history of ischemic heart disease and other diseases of the circulatory system; Z83.49 Family history of other endocrine, nutritional and metabolic diseases
CPT/HCPCS: 36415; 71046; 80053; 83735; 84484; 85025; 85610; 85730; 93005; 99285

== ENCOUNTER 2021-01-02 07:46 | Day surgery (SDC) | payer BC ==
[2020-12-30 12:13] VITALS: BMI 38.0
[~2021-01-02 07:46] MED LIST: ACETAMINOPHEN TAB 500 MG TAB PO PRN; DEXAMETHASONE SOD PHOSPHATE 4 MG/ML 1 ML VIAL IV ONE; HEPARIN SODIUM,PORCINE/PF 5,000 UNIT/0.5 ML SYRINGE SQ PRN; HYDROmorphone 0.5 MG/0.5 ML SYRINGE IVP PRN; LIDOCAINE 1% (10MG/ML) FOR IV START INTRADERMA PRN; MIDAZOLAM 2 MG/2 ML VIAL IV PRN; ONDANSETRON 4 MG/2 ML VIAL IVP ONE; ONDANSETRON 4 MG/2 ML VIAL IVP PRN; SCOPOLAMINE 1.5MG/72HR PATCH TRANSDERM ONE; metroNIDAZOLE-NS PMX 500 MG in SALINE 1 100ML.BAG IVPB PRN
[2021-01-02] MEDS: LACTATED RINGERS 1,000 ML IV SCH ×2 (08:20→09:38)
[2021-01-02] MEDS ORDERED: SUCCINYLCHOLINE CHLORIDE 100 MG/5 ML SYR IV ONE (09:37)
[2021-01-02] MEDS ORDERED: LIDOCAINE 1% INJ 10MG/ML (20 ML MDV) ONE (09:37)
[2021-01-02] MEDS ORDERED: DEXAMETHASONE SOD PHOSPHATE 10 MG/ML 1 ML VIAL ONE (09:37)
[2021-01-02] MEDS ORDERED: ROCURONIUM 10 MG/ML (5 ML VIAL) IV ONE (09:37)
[2021-01-02] MEDS ORDERED: PROPOFOL 10 MG/ML 20 ML VIAL IV ONE (09:37)
[2021-01-02] MEDS ORDERED: ePHEDrine SULFATE/0.9% NACL/PF 50 MG/5 ML SYRINGE IV ONE (09:37)
[2021-01-02] MEDS ORDERED: MIDAZOLAM 2 MG/2 ML VIAL ONE (09:37)
[2021-01-02] MEDS ORDERED: fentaNYL (PF) 50 MCG/ML 2 ML AMP ONE (09:37)
[2021-01-02] MEDS ORDERED: BUPIVACAINE (PF) 0.25% 30 ML VIAL SQ ONE ×3 (10:20)
[2021-01-02] MEDS ORDERED: LACTATED RINGERS 1,000 ML IV ONE (10:47)
[2021-01-02] MEDS ORDERED: GELATIN SPONGE,ABSORB (LARGE) 1 EACH SPONGE TOPICAL ONE (10:48)
[2021-01-02] MEDS ORDERED: NALOXONE 0.4 MG/ML 1 ML VIAL IV PRN (10:58)
--- NOTE | 2021-01-02 11:04 | P.OP ---
Date of Procedure: 01/02/21 Procedure(s) Performed: PREOPERATIVE DIAGNOSIS: Pilonidal cyst, external hemorrhoid POSTOPERATIVE DIAGNOSIS: Same PROCEDURE: Pilonidal cystectomy with single column hemorrhoidectomy SURGEON: Sherlyn EBL: Minimal ANESTHESIA: General COMPLICATIONS: None OPERATIVE PROCEDURE: Patient was placed prone on the operating table after general anesthesia was achieved. The gluteal crease was prepped and draped in usual sterile fashion after the patient was placed in the prone jackknife position. The patient had a cystic lesion in the gluteal crease. An elliptical incision was made around the cystic lesion. This was fully excised using both sharp dissection and cautery. No tunneling was seen. There were no sinus openings on the skin identified. The wound was then irrigated fully with saline. No bleeding was seen. The subcutaneous tissues were reapproximated using interrupted 2-0 Vicryl sutures. The dermal layer was then reapproximated using interrupted 3-0 Vicryl sutures. The skin was then closed using a running 3-0 Monocryl suture. Marcaine solution plain was utilized as local anesthesia. Skin glue was used along the length of the skin closure. A sterile dressing was applied at that time. The hemorrhoid was then addressed. The hemorrhoid was in the right anterior location. A 3-0 chromic stitch was placed at the apex of the hemorrhoidal column. This was tied down. The same stitch was later used to reapproximate our defect. Externally an incision was made along the perianal skin in elliptical fashion encompassing the hemorrhoid itself. The subcutaneous tissues were divided using both the Harmonic scalpel and electrocautery. The hemorrhoid was fully excised at that point using the Harmonic scalpel. The patient had an adjacent hypertrophied anal papilla that was excised using the Harmonic scalpel. The defect was closed using the loosely placed 3-0 chromic stitch in a locking fashion. A roll of Gelfoam was placed within the anus. No bleeding was seen. This area was also localized with Marcaine. DISPOSITION: Stable to recovery room
[2021-01-02 11:10] VITALS: TEMP 97
[2021-01-02] MEDS: fentaNYL (PF) 50 MCG/ML 2 ML AMP IVP PRN ×2 (11:21→11:31)
[2021-01-02 11:52] VITALS: RESP 18
[2021-01-02 12:40] VITALS: BP 125/86; PULSE 78
== END 2021-01-02 12:41 | disposition home or self-care (01) ==
LOC: OR 07:46
PROVIDERS: ATTEND Surgery
DX: L05.91 Pilonidal cyst without abscess (principal); K64.4 Residual hemorrhoidal skin tags; Z79.899 Other long term (current) drug therapy; F41.9 Anxiety disorder, unspecified; F32.9 Major depressive disorder, single episode, unspecified; K21.9 Gastro-esophageal reflux disease without esophagitis; E07.9 Disorder of thyroid, unspecified; Z87.891 Personal history of nicotine dependence; Z91.012 Allergy to eggs; Z91.011 Allergy to milk products
CPT/HCPCS: 46230; 11770; 81025; 88304; J2250; J1100 ×2; J0690; J2405; J2001; J3010; J0330; J2704; J1644

== ENCOUNTER 2021-09-18 01:22 | Emergency (ER) | payer OTHER, BC ==
[2021-09-18 01:29] VITALS: BP 146/95; PULSE 75; RESP 18; TEMP 98
--- NOTE | 2021-09-18 01:55 | XR ---
EXAMINATION TYPE: XR knee complete RT DATE OF EXAM: 09/18/2021 COMPARISON: NONE HISTORY: Fall. Pain TECHNIQUE: 3 views FINDINGS: There is spurring on the superior patella. I see no fracture nor dislocation. There is no s ign of joint effusion. IMPRESSION: No acute abnormality of the right knee.
--- NOTE | 2021-09-18 01:57 | XR ---
EXAMINATION TYPE: XR elbow complete LT DATE OF EXAM: 09/18/2021 COMPARISON: NONE HISTORY: Fall. Pain TECHNIQUE: 3 views FINDINGS: There is spurring on the olecranon process. I see no fracture nor dislocation. Joint spaces are normal. No sign of joint effusion. IMPRESSION: Degenerative spurring on the olecranon process. No fracture.
--- NOTE | 2021-09-18 02:30 | ED ---
Fall HPI - General Chief Complaint: Fall Stated Complaint: Fall, [facility] Time Seen by Provider: 09/18/21 01:52 Source: patient, family Mode of arrival: wheelchair - Related Data Home Medications Medication Instructions Recorded Confirmed ALPRAZolam [Xanax] 0.25 mg PO DAILY PRN 10/19/18 01/02/21 Ergocalciferol (Vitamin D2) 50,000 unit PO Q30D 10/19/18 01/02/21 [Drisdol (50,000 Iu)] Fluticasone Nasal [place] [Flonase 1 spray EA NOSTRIL DAILY PRN 10/19/18 01/02/21 Nasal [place]] Levothyroxine Sodium [Synthroid] 100 mcg PO QAM 10/19/18 01/02/21 Venlafaxine HCl [Effexor] 75 mg PO BID 12/30/20 01/02/21 Previous Rx's Medication Instructions Recorded HYDROcodone/APAP 5-325MG [[employer] 1 tab PO Q6HR PRN 3 Days #12 tab 01/02/21 5-325] HYDROcodone/APAP 5-325MG [[employer] 1 tab PO Q6HR PRN 3 Days #6 tab 01/02/21 5-325] Ibuprofen 800 mg PO TID #20 tablet 09/18/21 Allergies Allergy/AdvReac Type Severity Reaction Status Date / Time egg Allergy Nausea & Verified 09/18/21 01:29 Vomiting Milk Containing Products Allergy Nausea & Verified 09/18/21 01:29 [Dairy] Vomiting Review of Systems ROS Statement: Those systems with pertinent positive or pertinent negative responses have been documented in the HPI. ROS Other: All systems not noted in ROS Statement are negative. Past Medical History Past Medical History: GERD/Reflux, Hyperlipidemia, Thyroid Disorder Additional Past Medical History / Comment(s): hypothyroid. Right temporal AVM with bleed 5-2004. History of Any Multi-Drug Resistant Organisms: None Reported Past Surgical History: Section, Cholecystectomy, Tubal Ligation Additional Past Surgical History / Comment(s): x2, brain bleed from AVM with surgery/craniotomy, Past Anesthesia/Blood Transfusion Reactions: Postoperative Nausea & Vomiting (PONV) Past Psychological History: Anxiety, Depression Smoking Status: Never smoker Past Alcohol Use History: Occasional Past Drug Use History: None Reported - Past Family History Mother Family Medical History: Hyperlipidemia, Hypertension Grandfather Family Medical History: Myocardial Infarction ([place]) General Exam Limitations: no limitations Course Vital Signs 09/18/21 01:25 Temperature 98 F Pulse Rate 75 Respiratory 18 Rate Blood Pressure 146/95 O2 Sat by Pulse 98 Oximetry Disposition Clinical Impression: Fall, Contusion of left elbow Disposition: HOME SELF-CARE Condition: Good Instructions (If sedation given, give patient instructions): Contusion in Adults (ED) Prescriptions: Ibuprofen 800 mg PO TID #20 tablet Is patient prescribed a controlled substance at d/c from ED?: No Referrals: Angi Hall MD [Primary Care Provider] - 1-2 days Decision Time: 02:25
== END 2021-09-18 03:00 | disposition home or self-care (01) ==
LOC: EC 01:22
DX: S50.02XA Contusion of left elbow, initial encounter (principal); K21.9 Gastro-esophageal reflux disease without esophagitis; E78.5 Hyperlipidemia, unspecified; E07.9 Disorder of thyroid, unspecified; F41.9 Anxiety disorder, unspecified; F32.A Depression, unspecified; Z90.49 Acquired absence of other specified parts of digestive tract; Z98.51 Tubal ligation status; W01.0XXA Fall on same level from slipping, tripping and stumbling without subsequent striking against object, initial encounter
CPT/HCPCS: 99283

== ENCOUNTER → 2021-09-19 | Outpatient (CLI) | payer OTHER ==
--- NOTE | 2021-09-19 12:05 | XR ---
EXAMINATION TYPE: XR shoulder complete LT DATE OF EXAM: 09/19/2021 Comparison: None Clinical History: 51-year-old female S43.402A Findings: Moderate marginal spurring at the AC joint with mild joint space narrowing and capsular hypertrophy. Subacromial space is preserved. No tendinous or bursal calcifications. No acute fracture, subluxation , or dislocation seen. Impression: No acute osseous abnormality seen. Mild left AC joint OA. Prominent spurring may contribute to some s ubacromial impingement.
== END | disposition home or self-care (01) ==
LOC: RADXRMAIN 11:37
PROVIDERS: ATTEND Emergency Medicine
DX: M19.012 Primary osteoarthritis, left shoulder (principal); M25.712 Osteophyte, left shoulder

== ENCOUNTER → 2021-11-02 | Outpatient (CLI) | payer BC ==
--- NOTE | 2021-11-02 15:00 | MM ---
Reason for Exam: Screening (asymptomatic). Last mammogram was performed 1 year(s) and 5 month(s) ago. Patient History: Menarche at age 14. First Full-Term at age 34. Late child-bearing (after 30). Maternal aunt had ovarian cancer. Risk Values: Swapna 5 year model risk: 1.3%. NCI Lifetime model risk: 10.8%. Film Views: Bilateral CC views were taken. Bilateral MLO views were taken. Prior Study Comparison: 10/08/2017 Bilateral Screening Mammogram, [facility]. 04/23/2019 Bilateral Screening Mammogram, [facility]. 05/25/2020 Bilateral Screening Mammogram, [facility]. Tissue Density: There are scattered fibroglandular densities. Findings: Analyzed By CAD. There is no suspicious group of microcalcifications or new suspicious mass in either breast. Overall Assessment: Benign, BI-RAD 2 Management: Screening Mammogram of both breasts in 1 year. A clinical breast exam by your physician is recommended on an annual basis and results should be correlated with mammographic findings. Electronically signed and approved by: Abraham Mckenzie D.O. Radiologis
== END | disposition home or self-care (01) ==
LOC: RADMAMWWP 08:32
PROVIDERS: ATTEND Internal Medicine
DX: Z12.31 Encounter for screening mammogram for malignant neoplasm of breast (principal); Z80.41 Family history of malignant neoplasm of ovary
CPT/HCPCS: 77067

== ENCOUNTER → 2023-12-13 | Outpatient (CLI) | payer BC ==
--- NOTE | 2023-12-16 10:20 | MM ---
Reason for Exam: Screening (asymptomatic). Last mammogram was performed 2 year(s) and 2 month(s) ago. Patient History: Menarche at age 14. First Full-Term at age 34. Late child-bearing (after 30). Maternal aunt had ovarian cancer. Risk Values: Swapna 5 year model risk: 1.4%. NCI Lifetime model risk: 10.4%. Prior Study Comparison: 04/23/2019 Bilateral Screening Mammogram, [facility]. 05/25/2020 Bilateral Screening Mammogram, [facility]. 11/02/2021 Bilateral MG screening mammo w CAD, [facility]. Tissue Density: There are scattered areas of fibroglandular density. Findings: Analyzed By CAD. Right breast: There is no suspicious group of microcalcifications or new suspicious mass. Left breast: There is no suspicious group of microcalcifications or new suspicious mass. Overall Assessment: Negative, BI-RAD 1 Management: Screening Mammogram of both breasts in [address] [facility] will attempt to contact patient to return for supplemental views and ultrasound if indicated. Patient should continue monthly self-breast exams. A clinical breast exam by your physician is recommended on an annual basis. This exam should not preclude additional follow-up of suspicious palpable abnormalities. Note on Swapna scores and lifetime risk: 1. A Swapna score greater than 3% is considered moderate risk. If this is the case, consider specialist referral to assess eligibility for a risk reducing agent. 2. If overall lifetime risk for the development of breast cancer is 20% or higher, the patient may qualify for future screening with alternating mammogram and breast MRI. Electronically signed and approved by: Obi Gustafson DO
== END | disposition home or self-care (01) ==
LOC: RADMAMWWP 13:07
PROVIDERS: ATTEND Internal Medicine
DX: Z12.31 Encounter for screening mammogram for malignant neoplasm of breast (principal); Z80.41 Family history of malignant neoplasm of ovary
CPT/HCPCS: 77067